=== PATIENT | female | born 1945 | race Caucasian/White ===

== ENCOUNTER → 2016-10-13 | Outpatient (CLI) | payer OTHER ==
[2015-09-11 05:25] VITALS: BP 110/67
[~2016-10-13] MED LIST: AMIO200T2 PO; APIX5TAB PO; ATEN25TA PO; FLEC100T PO; FURO-68 PO; METO-269 PO; OXYC-323 PO; PANT40TA3 PO; POTA20TA12 PO
== END | disposition home or self-care (01) ==
LOC: PCVCCLINIC 13:06
PROVIDERS: ATTEND Internal Medicine Cardiovascular Disease
DX: I48.91 Unspecified atrial fibrillation (principal); E78.00 Pure hypercholesterolemia, unspecified; I51.7 Cardiomegaly; G47.33 Obstructive sleep apnea (adult) (pediatric); I87.2 Venous insufficiency (chronic) (peripheral)
CPT/HCPCS: 80061; 93005; G0463

== ENCOUNTER → 2016-10-26 | Outpatient (CLI) | payer OTHER ==
[2015-09-11 05:25] VITALS: BP 110/67
== END | disposition home or self-care (01) ==
LOC: PCVCIMAG 14:37
PROVIDERS: ATTEND Internal Medicine Cardiovascular Disease
DX: I87.2 Venous insufficiency (chronic) (peripheral) (principal); I10 Essential (primary) hypertension; I31.3 Pericardial effusion (noninflammatory); J90 Pleural effusion, not elsewhere classified
CPT/HCPCS: 93306; 93970

== ENCOUNTER → 2017-05-31 | Outpatient (CLI) | payer OTHER ==
[2015-09-11 05:25] VITALS: BP 110/67
== END | disposition home or self-care (01) ==
LOC: PCVCCLINIC 13:42
PROVIDERS: ATTEND Internal Medicine Cardiovascular Disease
DX: I48.0 Paroxysmal atrial fibrillation (principal); E78.5 Hyperlipidemia, unspecified; I87.2 Venous insufficiency (chronic) (peripheral); G47.33 Obstructive sleep apnea (adult) (pediatric); I77.89 Other specified disorders of arteries and arterioles; I08.1 Rheumatic disorders of both mitral and tricuspid valves; R94.31 Abnormal electrocardiogram [ECG] [EKG]; Z98.890 Other specified postprocedural states; Z86.79 Personal history of other diseases of the circulatory system; Z87.891 Personal history of nicotine dependence; Z79.82 Long term (current) use of aspirin
CPT/HCPCS: 80061; 93005; G0463

== ENCOUNTER → 2017-06-06 | Outpatient (CLI) | payer OTHER ==
[2015-09-11 05:25] VITALS: BP 110/67
--- NOTE | 2017-06-06 09:51 | PCVCIMAG ---
EXAM: BILATERAL RENAL ULTRASOUND AND BILATERAL RENAL DUPLEX INDICATION: Hypertension FINDINGS: Right kidney: Length measures 12.1 cm. No hydronephrosis or extensive renal scarring. Right renal duplex: Adequate technical quality. 50-60% mid renal artery stenosis. The aortic to renal artery ratio is 2.3. The renal vein is patent. Left kidney: Length measures 11.6 cm. No hydronephrosis or extensive renal scarring. Incidental note is made of a 6.1 x 7.1 x 7.3 cm benign cyst arising exophytically from the lower pole. Left renal duplex: Adequate technical quality. No sonographic evidence of renal artery stenosis. The aortic to renal artery ratio is 0.9. The renal vein is patent. Bladder: No obvious abnormalities. IMPRESSION: 50-60% stenosis mid portion of the main right renal artery. No significant left renal artery stenosis. LOC:[id number]
--- NOTE | 2017-06-06 09:51 | PCVCIMAG ---
APPROVED REPORT Study performed: 06/06/2017 09:37:37 EXAM: Comprehensive 2D, Doppler, and color-flow Echocardiogram Patient Location: Echo lab Status: routine BSA: 2.23 HR: 61 bpmBP: 138/84 mmHg Rhythm: NSR Other Information Study Quality: Adequate Risk Factors: Cardiac Risk Factors: HTN Indications Paroxysmal A fib, mitral regurgitation 2D Dimensions LVEF(%): 62.90 (>50%) IVSd: 11.69 (7-11mm) LVDd: 46.92 mm PWd: 12.42 (7-11mm) LVDs: 30.97 (25-40mm) Left Atrium: 46.49 (27-40mm) Aortic Root: 31.26 mm LV Single Plane 4CH: 54.63 % LV Single Plane 2CH: 67.45 %Cruz's LVEF: 61.04 % Biplane EF: 63.4 % Volumes Left Atrial Volume (Systole) Single Plane 4CH: 95.08 mLSingle Plane 2CH: 97.95 mL LA ESV Index: 45.00 mL/m2 Aortic Valve AoV Peak Julio.: 1.55 m/s AO Peak Gr.: 9.64 mmHgLVOT Max P.30 mmHg LVOT Max V: 1.04 m/s Mitral Valve E/A Ratio: 1.8 MV Decel. Time: 270.48 ms MV E Max Julio.: 0.86 m/s MV A Julio.: 0.49 m/s MV PHT: 78.44 ms IVRT: 83.04 ms Pulmonary Valve PV Peak Julio.: 0.90 m/sPV Peak Gr.: 3.26 mmHg Pulmonary Vein P Vein S: 0.38 m/sP Vein A: 0.29 m/s P Vein D: 0.50 m/sP Vein A Dur.: 124.6 msec P Vein S/D Ratio: 0.76 Tricuspid Valve TR Peak Julio.: 2.25 m/s TR Peak Gr.: 20.16 mmHg Left Ventricle The left ventricle is normal size. There is normal LV segmental wall motion. Mild concentric left ventricular hypertrophy. Left ventricular systolic function is normal. The left ventricular ejection fraction is within the normal range. LVEF is 60%. Grade II - pseudonormal filling dynamics. Right Ventricle The right ventricle is normal size. The right ventricular systolic function is normal. Atria Left atrium is moderately dilated. Right atrium is mildly dilated. Aortic Valve The aortic valve is normal in structure. No aortic regurgitation is present. There is no aortic valvular stenosis. Mitral Valve The mitral valve is normal in structure. Moderate mitral regurgitation. No evidence of mitral valve stenosis. There is mild anterior mitral valve prolapse with moderate regurgitation. Tricuspid Valve The tricuspid valve is normal in structure. There is trivial tricuspid valve regurgitation noted with PAP of 27 mmHg. Pulmonic Valve The pulmonary valve is normal in structure. There is no pulmonic valvular regurgitation. Great Vessels The aortic root is normal in size. IVC is normal in size and collapses with >50% inspiration Pericardium There is no pericardial effusion. <Conclusion> The left ventricle is normal size. Mild concentric left ventricular hypertrophy. LVEF is 60%. Grade II - pseudonormal filling dynamics. The right ventricle is normal size. Left atrium is moderately dilated. Right atrium is mildly dilated. The aortic valve is normal in structure. Moderate mitral regurgitation. There is trivial tricuspid valve regurgitation noted with PAP of 27 mmHg. There is no pericardial effusion.
== END | disposition home or self-care (01) ==
LOC: PCVCIMAG 08:16
PROVIDERS: ATTEND Internal Medicine Cardiovascular Disease
DX: Z01.812 Encounter for preprocedural laboratory examination (principal); N28.89 Other specified disorders of kidney and ureter; I10 Essential (primary) hypertension; E78.5 Hyperlipidemia, unspecified; I70.1 Atherosclerosis of renal artery; I48.0 Paroxysmal atrial fibrillation; I08.1 Rheumatic disorders of both mitral and tricuspid valves
CPT/HCPCS: 36415; 76770; 93306; 93975

== ENCOUNTER → 2018-07-06 | Outpatient (CLI) | payer OTHER ==
[2015-09-11 05:25] VITALS: BP 110/67
[~2018-07-06] MED LIST changes: -AMIO200T2 PO; +AMIO200T4 PO; -OXYC-323 PO; +OXYC1TAB15 PO
== END | disposition home or self-care (01) ==
LOC: PCVCCLINIC 15:00
PROVIDERS: ATTEND Internal Medicine Cardiovascular Disease
DX: I48.0 Paroxysmal atrial fibrillation (principal); E78.00 Pure hypercholesterolemia, unspecified; G47.33 Obstructive sleep apnea (adult) (pediatric); I87.2 Venous insufficiency (chronic) (peripheral); I31.3 Pericardial effusion (noninflammatory); I10 Essential (primary) hypertension; I70.1 Atherosclerosis of renal artery; E78.5 Hyperlipidemia, unspecified; I77.3 Arterial fibromuscular dysplasia; Z98.890 Other specified postprocedural states; Z86.79 Personal history of other diseases of the circulatory system; Z87.891 Personal history of nicotine dependence
CPT/HCPCS: 36415; 80061; 93005; G0463

== ENCOUNTER → 2019-01-05 | Outpatient (CLI) | payer OTHER ==
[2015-09-11 05:25] VITALS: BP 110/67
[~2019-01-05] MED LIST changes: -PANT40TA3 PO; +PANT40TA77 PO
== END | disposition home or self-care (01) ==
LOC: PCVCCLINIC 11:30
PROVIDERS: ATTEND Internal Medicine Cardiovascular Disease
DX: I48.0 Paroxysmal atrial fibrillation (principal); E78.00 Pure hypercholesterolemia, unspecified; I10 Essential (primary) hypertension; I07.1 Rheumatic tricuspid insufficiency; I34.0 Nonrheumatic mitral (valve) insufficiency; I87.2 Venous insufficiency (chronic) (peripheral); E78.5 Hyperlipidemia, unspecified; Z87.891 Personal history of nicotine dependence; Z72.89 Other problems related to lifestyle; Z98.890 Other specified postprocedural states; Z86.79 Personal history of other diseases of the circulatory system; Z79.899 Other long term (current) drug therapy
CPT/HCPCS: 36415; 80061; 93005; G0463